=== PATIENT | male | born 1950 | race Caucasian/White ===

== ENCOUNTER 2016-08-12 11:17 | Outpatient (CLI) | payer OTHER ==
[2016-08-12 12:01] LABS: CREATININE 1.2 mg/dL (0.6-1.2)
[2016-08-12] MEDS ORDERED: IOPAMIDOL-300 50 ML VIAL PO ONE (12:29)
[2016-08-12] MEDS ORDERED: IOPAMIDOL-300 100 ML VIAL IVP ONE (12:29)
--- NOTE | 2016-08-12 15:24 | CT Report ---
CT ABDOMEN AND PELVIS WITH CONTRAST: 08/12/2016 CLINICAL INDICATION: Abdominal pain. TECHNIQUE: Axial CT images of the abdomen and pelvis were obtained with 100 mL Isovue-300 intravenou sly as well as oral contrast. COMPARISON: CT 09/17/2015. FINDINGS: Limited evaluation of the lung bases is unremarkable. ABDOMEN: The liver, spleen, and adrenal glands appear unremarkable. The gallbladder is not dilated. The kidneys demonstrate cortical and parapelvic cysts. No nephrolithiasis or hydronephrosis is sky reciated. The pancreas demonstrates fatty replacement. No bowel dilatation, free gas, or free fluid is present. No abdominal adenopathy is seen. PELVIS: The appendix is seen in the right lower quadrant, and is normal in caliber. Postoperative c hanges of prostatectomy are present. Colonic diverticulosis is again seen, without CT evidence of di verticulitis. No pelvic adenopathy or free fluid is present. Osseous structures demonstrate degenerative changes and stable mild L1 compression fracture. IMPRESSION: POSTOPERATIVE CHANGES OF PROSTATECTOMY. NO EVIDENT ETIOLOGY FOR PATIENT'S PAIN. In accordance with CT protocol optimization, one or more of the following dose reduction techniques w ere utilized for this exam: automated exposure control, adjustment of mA and/or KV based on patient size, or use of iterative reconstructive technique. JOB #: [id number] EXT JOB #:[id number]
== END 2016-08-12 11:18 | disposition home or self-care (01) ==
LOC: DI 11:17
PROVIDERS: ATTEND Internal Medicine
DX: R10.9 Unspecified abdominal pain (principal); Z79.899 Other long term (current) drug therapy; Z90.79 Acquired absence of other genital organ(s)
CPT/HCPCS: 36415; 74177; 82565; Q9967

== ENCOUNTER 2018-04-14 12:47 | Outpatient (CLI) | payer MEDICARE, OTHER ==
[2018-04-14 13:31] LABS: BASOPHILS % (AUTO) 0.7 %; EOSINOPHILS # (AUTO) 0.1 10^3/uL (0.0-0.7); EOSINOPHILS % (AUTO) 1.2 %; HGB - HEMOGLOBIN 15.3 g/dL (14.0-18.0); LYMPHOCYTES # (AUTO) 1.3 10^3/uL (1.5-3.5); LYMPHOCYTES % (AUTO) 22.9 %; MEAN CORPUSCULAR HGB CONC 34.3 g/dL (32.0-36.0); MEAN CORPUSCULAR VOLUME 90.5 fL (80.0-94.0); MEAN PLATELET VOLUME 10.2 fL (7.4-11.4); MONOCYTES # (AUTO) 0.5 10^3/uL (0.0-1.0); MONOCYTES % (AUTO) 9.1 %; NEUTROPHILS # (AUTO) 3.9 10^3/uL (1.5-6.6); NEUTROPHILS % (AUTO) 66.1 %; PLT - PLATELET COUNT 150 10^3/uL (130-450); RED BLOOD COUNT 4.94 10^6/uL (4.70-6.10); RED CELL DISTRIBUTION WIDTH 13.2 % (12.0-15.0); WHITE BLOOD COUNT 5.9 x10^3/uL (4.8-10.8)
== END 2018-04-14 12:48 | disposition home or self-care (01) ==
LOC: RT 12:47
PROVIDERS: ATTEND Internal Medicine Gastroenterology
DX: I10 Essential (primary) hypertension (principal); K21.9 Gastro-esophageal reflux disease without esophagitis
CPT/HCPCS: 36415; 85025; 93005

== ENCOUNTER 2018-05-06 08:29 | Day surgery (SDC) | payer MEDICARE, OTHER ==
[2018-05-06] MEDS ORDERED: LACTATED RINGERS 1,000 ML IV ONE ×2 (09:01→10:09)
[2018-05-06] MEDS ORDERED: fentaNYL 250 MCG/5 ML VIAL IVP ONE (09:49)
[2018-05-06] MEDS ORDERED: MIDAZOLAM 2 MG/2 ML VIAL IVP ONE (09:49)
[2018-05-06] MEDS ORDERED: fentaNYL 100 MCG/2 ML VIAL IVP ONE (09:49)
[2018-05-06] MEDS ORDERED: LIDO GARGLE 30 ML BOTTLE TOP ONE (09:53)
[2018-05-06] MEDS ORDERED: LIDO GARGLE 30 ML BOTTLE ONE (09:55)
[2018-05-06 11:27] VITALS: BP 110/61
== END 2018-05-06 08:30 | disposition home or self-care (01) ==
LOC: SDS 08:29
PROVIDERS: ATTEND Internal Medicine Gastroenterology
PROC: 0DB78ZX Excision of Stomach, Pylorus, Via Natural or Artificial Opening Endoscopic, Diagnostic (ICD-10-PCS; 2018-05-06)
PROC: 0DBM8ZZ Excision of Descending Colon, Via Natural or Artificial Opening Endoscopic (ICD-10-PCS; principal; 2018-05-06 09:45)
PROC: 0DB78ZZ Excision of Stomach, Pylorus, Via Natural or Artificial Opening Endoscopic (ICD-10-PCS; 2018-05-06 09:45)
DX: Z12.11 Encounter for screening for malignant neoplasm of colon (principal); K21.9 Gastro-esophageal reflux disease without esophagitis; D12.4 Benign neoplasm of descending colon; K57.30 Diverticulosis of large intestine without perforation or abscess without bleeding; K31.7 Polyp of stomach and duodenum; I10 Essential (primary) hypertension; C61 Malignant neoplasm of prostate; Z87.891 Personal history of nicotine dependence
CPT/HCPCS: 43239; 43251; 45380; A9270; J3010; J7120

== ENCOUNTER 2018-07-18 09:26 | Outpatient (CLI) | payer MEDICARE, OTHER ==
--- NOTE | 2018-07-19 08:31 | Ultrasound Report ---
Reason: ENLARGED LYMPH NODES, UNSPECIFIED Procedure Date: 07/18/2018 Accession Number: [id number] / [id number] Procedure: US - Head or Neck Soft Tissue CPT Code: FULL RESULT: EXAM: NECK ULTRASOUND EXAM DATE: 07/18/2018 10:31 AM. CLINICAL HISTORY: ENLARGED LYMPH NODES, UNSPECIFIED. COMPARISON: None. TECHNIQUE: Real-time sonographic imaging was performed by the photolettering machine operator utilizing color-flow. Multiple dairy supplies sales representative static images were saved for review. FINDINGS: Multiple bilateral lymph nodes are seen but none appear to be significantly enlarged. Largest on the right side is 1.4 x 0.5 x 0.6 cm. Largest on the left is 2 x 0.5 x 1 cm. Small bilateral thyroid nodules noted without any contour deformity of the thyroid margins. Posterior well-defined left thyroid nodule is 9 x 6 x 5 mm. Anterior right nodule is 10 x 6 x 7 mm. IMPRESSION: No abnormal nodularity or fluid collection identified at the neck. RADIA
== END 2018-07-18 09:27 | disposition home or self-care (01) ==
LOC: DI 09:26
PROVIDERS: ATTEND Physician Assistant Medical
DX: R59.9 Enlarged lymph nodes, unspecified (principal); Z85.820 Personal history of malignant melanoma of skin
CPT/HCPCS: 76536

== ENCOUNTER 2018-11-16 08:00 | Outpatient (CLI) | payer MEDICARE, OTHER ==
[2018-11-16 12:27] LABS: ALBUMIN/GLOBULIN RATIO 1.5 (1.0-2.2); BILIRUBIN,TOTAL 1.3 mg/dL (0.2-1.0); CALCIUM 9.2 mg/dL (8.5-10.3); CREATININE 1.1 mg/dL (0.6-1.2); TOTAL PROTEIN 6.6 g/dL (6.7-8.2)
[2018-11-16 12:28] LABS: BASOPHILS % (AUTO) 0.4 %; EOSINOPHILS # (AUTO) 0.1 10^3/uL (0.0-0.7); EOSINOPHILS % (AUTO) 1.2 %; HGB - HEMOGLOBIN 14.1 g/dL (14.0-18.0); LYMPHOCYTES # (AUTO) 1.3 10^3/uL (1.5-3.5); LYMPHOCYTES % (AUTO) 19.2 %; MEAN CORPUSCULAR HEMOGLOBIN 29.9 pg (27.0-31.0); MEAN CORPUSCULAR HGB CONC 32.4 g/dL (32.0-36.0); MEAN CORPUSCULAR VOLUME 92.4 fL (80.0-94.0); MEAN PLATELET VOLUME 12.6 fL (7.4-11.4); MONOCYTES # (AUTO) 0.5 10^3/uL (0.0-1.0); MONOCYTES % (AUTO) 7.4 %; NEUTROPHILS # (AUTO) 4.9 10^3/uL (1.5-6.6); NEUTROPHILS % (AUTO) 71.7 %; PLT - PLATELET COUNT 151 10^3/uL (130-450); RED BLOOD COUNT 4.71 10^6/uL (4.70-6.10); RED CELL DISTRIBUTION WIDTH 12.7 % (12.0-15.0); WHITE BLOOD COUNT 6.9 x10^3/uL (4.8-10.8)
== END 2018-11-16 23:59 | disposition home or self-care (01) ==
LOC: LAB.N 08:00
PROVIDERS: ATTEND Internal Medicine Gastroenterology
DX: I10 Essential (primary) hypertension (principal); N39.0 Urinary tract infection, site not specified; C61 Malignant neoplasm of prostate
CPT/HCPCS: 36415; 80053; 85025

== ENCOUNTER 2021-03-28 09:20 | Outpatient (CLI) | payer MEDICARE, OTHER ==
[2021-03-28 12:13] LABS: ALBUMIN 4.1 g/dL (3.2-5.5); ALBUMIN/GLOBULIN RATIO 1.9 (1.0-2.2); CALCIUM 9.2 mg/dL (8.5-10.3); TOTAL PROTEIN 6.3 g/dL (6.7-8.2)
[2021-03-28 12:14] LABS: HCT - HEMATOCRIT 46.8 % (42.0-52.0); HGB - HEMOGLOBIN 15.2 g/dL (14.0-18.0); MEAN CORPUSCULAR HEMOGLOBIN 31.2 pg (27.0-31.0); MEAN CORPUSCULAR HGB CONC 32.5 g/dL (32.0-36.0); MEAN CORPUSCULAR VOLUME 96.1 fL (80.0-94.0); MEAN PLATELET VOLUME 12.9 fL (7.4-11.4); NEUTROPHILS # (AUTO) 3.3 10^3/uL (1.5-6.6); NEUTROPHILS % (AUTO) 60.9 %; RED BLOOD COUNT 4.87 10^6/uL (4.70-6.10); RED CELL DISTRIBUTION WIDTH 12.9 % (12.0-15.0); WHITE BLOOD COUNT 5.4 x10^3/uL (4.8-10.8)
== END 2021-03-28 09:21 | disposition home or self-care (01) ==
LOC: LAB.N 09:20
PROVIDERS: ATTEND Internal Medicine Hematology & Oncology
DX: C61 Malignant neoplasm of prostate (principal)
CPT/HCPCS: 36415; 80053; 84153; 85027

== ENCOUNTER 2022-03-06 08:00 | Outpatient (CLI) | payer MEDICARE, OTHER ==
[2022-03-06 16:18] LABS: BASOPHILS % (AUTO) 0.7 %; EOSINOPHILS # (AUTO) 0.1 10^3/uL (0.0-0.7); HCT - HEMATOCRIT 47.3 % (42.0-52.0); HGB - HEMOGLOBIN 15.6 g/dL (14.0-18.0); LYMPHOCYTES # (AUTO) 1.6 10^3/uL (1.5-3.5); LYMPHOCYTES % (AUTO) 29.1 %; MEAN CORPUSCULAR HEMOGLOBIN 30.8 pg (27.0-31.0); MEAN CORPUSCULAR VOLUME 93.5 fL (80.0-94.0); MONOCYTES # (AUTO) 0.6 10^3/uL (0.0-1.0); MONOCYTES % (AUTO) 10.5 %; NEUTROPHILS # (AUTO) 3.2 10^3/uL (1.5-6.6); NEUTROPHILS % (AUTO) 57.7 %; PLT - PLATELET COUNT 153 10^3/uL (130-450); RED BLOOD COUNT 5.06 10^6/uL (4.70-6.10); WHITE BLOOD COUNT 5.5 x10^3/uL (4.8-10.8)
[2022-03-06 16:39] LABS: ALBUMIN 4.4 g/dL (3.2-5.5); ALBUMIN/GLOBULIN RATIO 1.8 (1.0-2.2); ALKALINE PHOSPHATASE 55 IU/L (42-121); ALT ALANINE AMINOTRANSFERASE 26 IU/L (10-60); AST ASPARTATE AMINOTRANSFERASE 32 IU/L (10-42); BILIRUBIN,TOTAL 1.1 mg/dL (0.2-1.0); BUN - BLOOD UREA NITROGEN 19 mg/dL (6-20); CALCIUM 8.9 mg/dL (8.5-10.3); CARBON DIOXIDE - CO2 27 mmol/L (21-32); CHLORIDE 101 mmol/L (101-111); CHOL/HDL RATIO 3.2 (<5.0); CHOLESTEROL 197 mg/dL; CK- CREATINE KINASE 202 IU/L (22-269); CREATININE 1.1 mg/dL (0.6-1.2); GFR - MDRD 66 (>89); GLUCOSE 98 mg/dL (70-100); HDL CHOLESTEROL 62 mg/dL; LDL CHOLESTEROL,CALCULATED 125 mg/dL; POTASSIUM 4.3 mmol/L (3.5-5.0); SODIUM 135 mmol/L (135-145); TOTAL PROTEIN 6.8 g/dL (6.7-8.2); TRIGLYCERIDES 50 mg/dL; VLDL CHOLESTEROL 10 mg/dL
== END 2022-03-06 23:59 | disposition home or self-care (01) ==
LOC: LAB.R 08:00
PROVIDERS: ATTEND Internal Medicine
DX: Z00.00 Encounter for general adult medical examination without abnormal findings (principal); K21.9 Gastro-esophageal reflux disease without esophagitis; Z86.010 Personal history of colon polyps; E78.5 Hyperlipidemia, unspecified; C43.9 Malignant melanoma of skin, unspecified; R00.2 Palpitations; C61 Malignant neoplasm of prostate; C80.1 Malignant (primary) neoplasm, unspecified; Z79.899 Other long term (current) drug therapy
CPT/HCPCS: 80053; 80061; 82306; 82550; 83721; 84443; 85025

== ENCOUNTER 2022-04-22 12:41 | Outpatient (CLI) | payer MEDICARE, OTHER | END 2022-04-22 12:42 | disposition home or self-care (01) | LOC: DI 12:41 | PROVIDERS: ATTEND Internal Medicine | DX: I35.0 Nonrheumatic aortic (valve) stenosis (principal); I51.7 Cardiomegaly | CPT/HCPCS: 93306 ==

== ENCOUNTER 2022-11-02 09:12 | Outpatient (CLI) | payer MEDICARE, OTHER ==
--- NOTE | 2022-11-02 20:28 | Ultrasound Report ---
PROCEDURE: Retroperitoneal INDICATIONS: ANGIOMYOLIPOMA OF RIGHT KIDNEY TECHNIQUE: Real-time scanning was performed of the retroperitoneal organs, with image documentation. COMPARISON: 09/26/2015. Correlation is also made with CT, 09/11/2016 FINDINGS: Kidneys: Kidneys are normal in size. Right kidney measures 11.5 cm long; left kidney measures 12.2 cm long. Right renal cortical thickness is 0.7 cm; left renal cortical thickness is 0.9 cm. No shad owing stones are seen. At the superior pole of the right kidney, there is a nonshadowing hyperechoic nodule that measures up to 1.9 cm, previously measuring up to 2 cm. At the inferior pole of the left kidney, there is a nonshadowing hyperechoic nodule that measures up to 1 cm, previously measuring up to 1.2 cm. Apparent mild dilatation of the right renal collecting system can be seen. Mild left-sided hydronephrosis is seen. Bladder: Pre-void bladder volume is 390 mL. Post-void residual is 2 mL. Pre-void images demonstrat e no intraluminal masses or stones. On pre-void images, both ureteral jets are noted with color Dopp ler interrogation. (Of note, ureteral jets may not be detectable in up to 25% of cases due to insuff icient differences in specific gravity between ureteral and bladder urine). Miscellaneous: No free abdominal fluid. A urinary sphincter device is seen. 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 Apparent mild dilatation intrarenal collecting system. Differential diagnosis includes peripelvic cys ts. Apparent mild left-sided hydronephrosis. Trivial postvoid residual, 2 cc. A urinary stricture device can be seen. Reviewed by: Isma Londono MD on 11/02/2022 7:27 PM [facility] Approved by: Isma Londono MD on 11/02/2022 7:27 PM [facility] Station ID: [id number]
== END 2022-11-02 09:13 | disposition home or self-care (01) ==
LOC: DI 09:12
PROVIDERS: ATTEND Specialist
DX: D17.71 Benign lipomatous neoplasm of kidney (principal); Z96.0 Presence of urogenital implants